=== PATIENT | male | born 1980 | race Caucasian/White ===

== ENCOUNTER 2018-09-24 16:55 | Inpatient (IN) | payer BC ==
[~2018-09-24] VITALS: Ht 172.7 cm; Wt 97.5 kg
[2018-09-24] VITALS (7 sets, daily range): BP systolic 101–113; BP diastolic 66–76
[~2018-09-24 16:55] MED LIST changes: -DOCU-202 PO; -LOR5/325 PO
--- NOTE | 2018-09-24 17:18 | ER Report ---
History and Physical Time Seen By MD: 17:17 Hx. of Stated Complaint: right sided abd pain HPI/ROS rlq pain and nausea for 24 hours. Went to urgent care and sent to ED with CT sca n positive for ruptured appy. Febrile. RLQ TTP. Remainder of the 14 system rev: Yes Allergies: Coded Allergies: No Known Drug Allergies (Unverified , 09/24/18) Home Meds Discontinued Reported Medications Oxycodone Hcl/Acetaminophen (PERCOCET 5-325 MG TABLET) 1 Each Tablet, 1 EACH PO Q6H 09/11/13 Naproxen (NAPROSYN) 500 Mg Tablet, 500 MG PO Q12H, TAB TAKE 1 TABLET EVERY 12 HOURS. 09/11/13 Tramadol Hcl (ULTRAM) 50 Mg Tablet, 50 MG PO Q4-6H 09/11/13 Discontinued Scripts Tramadol Hcl (ULTRAM) 50 Mg Tablet, 50 MG PO Q4-6H, #20 TAB Prov:ERICK HARRIS MD 09/11/13 Oxycodone Hcl/Acetaminophen (PERCOCET 5-325 MG TABLET) 1 Each Tablet, 1 EACH PO Q6H, #20 TAB Prov:ERICK HARRIS MD 09/11/13 Naproxen (NAPROSYN) 500 Mg Tablet, 500 MG PO Q12H, #30 TAB TAKE 1 TABLET EVERY 12 HOURS. Prov:ERICK HARRIS MD 09/11/13 Reviewed Nurses Notes: Yes Old Medical Records Reviewed: Yes Hx Smoking: Yes Hx Substance Use Disorder: No Hx Alcohol Use: No Constitutional Vital Sign - Last 24 Hours 09/24/18 09/24/18 09/24/18 09/24/18 17:06 17:15 17:25 17:30 Temp 102.0 Pulse 105 101 Resp 18 B/P (MAP) 109/78 (88) 109/78 123/78 (93) Pulse Ox 89 88 O2 Delivery Room Air Room Air 09/24/18 17:50 Pulse 102 Pulse Ox 89 O2 Delivery Room Air Physical Exam General Appearance: The patient is alert, has no immediate need for airway protection and no current signs of toxicity. Respiratory: Chest is non tender, lungs are clear to auscultation. Cardiac: regular rate and rhythm Gastrointestinal: Abdomen is soft with TTP at the RLQ and guarding Skin: No rashes or lesions. DIFFERENTIAL DIAGNOSIS: After history and physical exam differential diagnosis w as considered for abdominal pain including but not limited to appendicitis, cholecystitis, gastritis and urinary tract infection. Medical Decision Making Data Points Laboratory Hematology Test 09/24/18 17:33 Chemistry Test 09/24/18 17:33 Coagulation Test 09/24/18 17:33 ED Course/Re-evaluation ED Course sent to the ED from urgent care with known perforated appendicitis both clinically and on CT scan. Fever, nausea, abdominal pain for 24 hours. Given abx and pain meds. will go to the OR. Decision to Disposition Date: Sep 24, 2018 Decision to Disposition Time: 17:55 Depart Departure Latest Vital Signs Vital Signs Date Time Temp Pulse Resp B/P (MAP) Pulse Ox O2 Delivery O2 Flow Rate FiO2 09/24/18 17:50 102 89 Room Air 09/24/18 17:30 123/78 (93) 09/24/18 17:15 102.0 18 Impression: Primary Impression: Acute appendicitis with appendiceal abscess Condition: Improved Disposition: ADMIT FROM ER TO OR BRIJESH CUNNINGHAM MD Sep 24, 2018 17:17
[2018-09-24] MEDS ORDERED: NS(*) 0.9% 1000 ML BAG 1,000 ML IV ONE (17:25)
[2018-09-24] MEDS ORDERED: ONDANSETRON 4 MG/2 ML VIAL IVP ONE (17:30)
[2018-09-24] MEDS ORDERED: fentaNYL CITR 100 MCG/2 ML AMP IVP ONE (17:30)
[2018-09-24] MEDS ORDERED: AMPICILLIN/SULBACT (*) 3 GM VL 3 GM in NS(*) 0.9% 100 ML BAG 100 ML IVPB ONE (17:35)
[2018-09-24] MEDS ORDERED: BUPIV/EPI 0.25% 1:200,000 50ML INFIL ONE (17:43)
[2018-09-24 17:55] LABS: PLATELET COUNT, AUTOMATED 197 K/uL (150-450)
--- NOTE | 2018-09-24 17:58 | Gen Surgery History & Physical ---
History of Present Illness Chief Complaint RLQ pain History of Present Illness This 37 year old male was in his usual state of [facility] until three days ago when he developed periumbilical pain. This has increased in severity and moved to the RLQ. Associated with nausea and anorexia. Was seen at urgent care and had a CT scan that shows perforated appendicitis. Now being admitted for appendectomy. History Home Meds Discontinued Reported Medications Oxycodone Hcl/Acetaminophen (PERCOCET 5-325 MG TABLET) 1 Each Tablet, 1 EACH PO Q6H 09/11/13 Naproxen (NAPROSYN) 500 Mg Tablet, 500 MG PO Q12H, TAB TAKE 1 TABLET EVERY 12 HOURS. 09/11/13 Tramadol Hcl (ULTRAM) 50 Mg Tablet, 50 MG PO Q4-6H 09/11/13 Discontinued Scripts Tramadol Hcl (ULTRAM) 50 Mg Tablet, 50 MG PO Q4-6H, #20 TAB Prov:ERICK HARRIS MD 09/11/13 Oxycodone Hcl/Acetaminophen (PERCOCET 5-325 MG TABLET) 1 Each Tablet, 1 EACH PO Q6H, #20 TAB Prov:ERICK HARRIS MD 09/11/13 Naproxen (NAPROSYN) 500 Mg Tablet, 500 MG PO Q12H, #30 TAB TAKE 1 TABLET EVERY 12 HOURS. Prov:ERICK HARRIS MD 09/11/13 Allergies: Coded Allergies: No Known Drug Allergies (Unverified , 09/24/18) Review of Systems All Systems Reviewed/Normal: Yes, Except as Noted Gastrointestinal: Nausea, Abdominal Pain, Other (Anorexia) Exam General Appearance: Alert, Awake, No Acute Distress ENT: Moist Mucous Membranes Cardiovascular: Regular Rate and Rhythm Respiratory: No Respiratory Distress, Clear to Auscultation GI: Other (Abdomen is distended, markedly tender in RLQ, postive rebound and Rovsings sign. ) Extremities: Soft and Non Tender Integumentary: Skin Intact without Lesion / Mass Psych: Alert & Oriented X3, Appropriate Mood & Affect Assessment and Plan Problems: (1) Acute appendicitis with appendiceal abscess Status: Acute Assessment & Plan: I discussed in detail the diagnosis and treatment options. I reviewed the procedure of laparoscopic appendectomy and possible need for open operation. Risks and possible complications were reviewed. Informed consent obtained. IV Unasyn ordered by ED MD. To OR TON. Venous Thromboembolism VTE Risk Physician Assess for VTE Risk: Yes Patient's VTE Risk: Low VTE Diagnostic Test 2 Days Prior to Admit: No Antithrombotics Is Pt On Any Antithrombotics?: No Prophylaxis Tx Contraindicated Pharmacological Contraindicati: Pt at Low Risk for VTE Mechanical Contraindications: Pt at Low Risk for VTE SABINE HERNANDEZ MD Sep 24, 2018 17:58
[2018-09-24 18:06] LABS: INR 1.16
[2018-09-24] MEDS ORDERED: NS 0.9% IRRIGATION 1000ML PLCT IR ONE (18:43)
[2018-09-24] MEDS ORDERED: KCL/D1/2NS 20 MEQ 1000 ML 1,000 ML IV PRN (19:43)
--- NOTE | 2018-09-24 19:43 | Post Operative Progress Note ---
Post Operative Progress Note Date: Sep 24, 2018 Time: 19:35 Surgeon: [employer] Technologist: ZACK Anesthesia: General ET Pre-Op Diagnosis: Perforated appendicitis Post-Op Diagnosis: same with periappendiceal abscess Findings: as above Procedure(s): Laparoscopic appendectomy and drainage of periappendiceal abscess Specimen Removed:(May be N/A): Appendix Complications: none Estimated Blood Loss: < 10 ml Date OP Note Dictated: Sep 24, 2018 Time OP Note Dictated: 19:36 SABINE HERNANDEZ MD Sep 24, 2018 19:43
[2018-09-24] MEDS ORDERED: ONDANSETRON 4 MG/2 ML VIAL IVP PRN (19:45)
[2018-09-24] MEDS ORDERED: KETOROLAC 30 MG/ML VIAL ONE (19:53)
[2018-09-24] MEDS ORDERED: LIDOCAINE/SOD BICARB 8.4% SYR ONE (19:59)
[2018-09-24] MEDS ORDERED: PIPERACILLIN/TAZO*3.375GM VIAL 3.375 GM in NS(*) 0.9% 100 ML ADDVANT BAG 100 ML IVPB SCH (20:00)
[2018-09-24] MEDS ORDERED: NORMOSOL R SOLN(*) 1000 ML BAG 1,000 ML IV ONE (20:10)
[2018-09-24] MEDS ORDERED: ACETAMINOPHEN(*)1000 MG/100 ML 100 ML IVPB ONE (20:14)
--- NOTE | 2018-09-24 20:37 | OPERATIVE REPORT 1 ---
EVENT DATE: September 24, 2018 SURGEON: Aydin Hoyos MD ANESTHESIOLOGIST: Parish Reynoso MD ANESTHESIA: General endotracheal anesthesia. 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 Incarcerated umbilical hernia PROCEDURE PERFORMED Laparoscopic appendectomy with drainage of periappendiceal abscess. Umbilical hernia repair PROCEDURE IN DETAIL Patient was taken to the operating room and placed in supine position. After induction of adequate general endotracheal anesthesia, timeout was taken. Patient had received Unasyn preoperatively. SCDs were in place. Abdomen was preped and draped in usual sterile fashion. Attention was then turned to the umbilicus. The patient as noted to have an umbilical hernia. Therefore, an incision was made at the superior aspect of the umbilicus overlying the hernia. This was carried through the skin and subcutaneous tissue. The hernia sac contained preperitoneal fat, the hernia sac was dissected free from its surrounding tissues. The hernia sac was then excised. The preperitoneal fat was reduced. A pursestring 0 Vicryl suture was placed in the fascia. A 10/12 trocar was then introduced under direct visualization. Pneumoperitoneum was created. The laparoscope was then introduced. Two 5 mm ports were then placed under direct visualization, one in the right upper quadrant and one in the left lower quadrant. The patient was then placed in the head-down position and turned towards the left. The small bowel was adherent to an inflammatory mass in the right lower quadrant. Using careful blunt dissection, the small bowel was from this phlegmon. Attention was turned to the lateral pericolic gutter where dissection was continued freeing the appendix. A periappendiceal abscess was then entered. This was evacuated with suction irrigation. Further dissection was continued mobilizing the mesoappendix. The mesoappendix was then divided with the Harmonic scalpel. Dissection was continued up to the base of the appendix. The appendiceal base appeared to be uninvolved. A 5 mm scope attached in through the right upper quadrant 5 mm port. Using this ROMULO stapling device through the 12 mm port, the appendiceal base was then stapled and divided at the cecum. The appendix was then placed in an Endo Pouch and brought through the umbilicus. The right lower quadrant was irrigated with copious amounts of saline. Adequate hemostasis confirmed. A 19-Romansh round, fully fluted drain was then brought in through a separate stab wound incision in the right lower quadrant and positioned in this abscess cavity. It was sutured to the skin with an 0 silk suture. Adequate hemostasis was again confirmed. The two 5 mm ports were removed under direct visualization. Hemostasis noted. The pneumoperitoneum was then evacuated. The fascial defect at the umbilical hernia site was then closed with interrupted 2-0 PDS sutures. The umbilicus was tacked to this repair with interrupted 2-0 PDS suture. All wounds were infiltrated with 0.25% Marcaine with epinephrine for postop pain control. All wounds were irrigated with copious amounts of saline. The skin was then closed with simple running 4-0 Monocryl subcuticular sutures. Dermabond was applied to all wounds. The patient tolerated this well and was taken to the PACU in stable condition. He will be admitted to the surgical floor for continued postoperative care and intravenous antibiotics. ZACK
[2018-09-24] MEDS: DOCUSATE SODIUM 100 MG CAP PO SCH (21:58)
[2018-09-25] VITALS (11 sets, daily range): BP systolic 94–109; BP diastolic 56–74; Ht 172.7 cm; Wt 97.5 kg
[2018-09-25] MEDS: KETOROLAC 30 MG/ML VIAL IVP SCH ×4 (02:35→20:24)
[2018-09-25] MEDS: PIPERACILLIN/TAZO*3.375GM VIAL 3.375 GM in NS(*) 0.9% 100 ML ADDVANT BAG 100 ML IVPB SCH ×4 (02:37→20:24)
[2018-09-25 05:56] LABS: PLATELET COUNT, AUTOMATED 168 K/uL (150-450)
[2018-09-25] MEDS ORDERED: KCL/D1/2NS 20 MEQ 1000 ML 1,000 ML IV PRN (06:40)
--- NOTE | 2018-09-25 06:40 | General Surgery Progress Note ---
Subjective Progress Notes Subjective Feeling better Physical Exam Vital Signs Date Time Temp Pulse Resp B/P (MAP) Pulse Ox O2 Delivery O2 Flow Rate FiO2 09/25/18 05:43 97.8 09/25/18 05:02 101/68 (79) 09/25/18 05:00 66 96 Nasal Cannula 3.0 09/24/18 21:27 16 Intake and Output 09/25/18 07:00 Intake Total 3050 ml Output Total 1060 ml Balance 1990 ml Intake Oral 200 ml IV Total 2850 ml Output Urine Total 1025 ml Drainage Total 35 ml General Appearance: Alert, Awake, No Acute Distress, Afebrile Neuro: No Gross deficits ENT: Moist Mucous Membranes Cardiovascular: Regular Rate and Rhythm Respiratory: No Respiratory Distress, Clear to Auscultation GI: Other (soft, expected tenderness, BS present) Extremities: Soft and Non Tender Psych: Alert & Oriented X3 Result Diagram: 09/25/1854109/25/18541 Assessment and Plan Problems: (1) Acute appendicitis with appendiceal abscess Status: Acute Assessment & Plan: I discussed in detail the diagnosis and treatment options. I reviewed the procedure of laparoscopic appendectomy and possible need for open operation. Risks and possible complications were reviewed. Informed consent obtained. IV Unasyn ordered by ED MD. To OR TON. 09/25/18: POD #1 Afebrile now, WBC 13.7K, Lytes and Cr okay. Continue Zosyn. Leave drain. Continue full liquids for now. Decrease IVF, Vigorous pulmonary toilet. Ambulate. Recheck CBC in am. Time Spent: < 30 min Exam Sepsis Risk: No Definite Risk SABINE HERNANDEZ MD Sep 25, 2018 06:40
[2018-09-25] MEDS ORDERED: ENOXAPARIN 40 MG/0.4ML SYR SC SCH (09:00)
[2018-09-25] MEDS: ENOXAPARIN 40 MG/0.4ML SYR SC SCH (09:33)
[2018-09-25] MEDS: DOCUSATE SODIUM 100 MG CAP PO SCH ×2 (09:33→20:24)
[2018-09-25] MEDS: APAP/HYDROCODONE 325/5 TAB PO PRN ×3 (13:03→21:42)
[2018-09-26] MEDS: KETOROLAC 30 MG/ML VIAL IVP SCH ×2 (02:37→08:18)
[2018-09-26] MEDS: PIPERACILLIN/TAZO*3.375GM VIAL 3.375 GM in NS(*) 0.9% 100 ML ADDVANT BAG 100 ML IVPB SCH ×3 (02:37→14:24)
[2018-09-26 03:24] VITALS: BP 99/52
[2018-09-26 05:56] LABS: PLATELET COUNT, AUTOMATED 165 K/uL (150-450)
[2018-09-26 07:58] VITALS: BP 104/60
[2018-09-26] MEDS: DOCUSATE SODIUM 100 MG CAP PO SCH (08:19)
[2018-09-26] MEDS: ENOXAPARIN 40 MG/0.4ML SYR SC SCH (08:19)
--- NOTE | 2018-09-26 10:39 | General Surgery Progress Note ---
Subjective Progress Notes Subjective Feeling much better, tolerating PO, had BM's. Physical Exam Vital Signs Date Time Temp Pulse Resp B/P (MAP) Pulse Ox O2 Delivery O2 Flow Rate FiO2 09/26/18 09:49 92 09/26/18 08:28 Nasal Cannula 2.0 09/26/18 07:58 98.6 68 17 104/60 (75) Intake and Output 09/26/18 07:00 Intake Total 841 ml Output Total 20 ml Balance 821 ml Intake Oral 520 ml IV Total 321 ml Drainage Total 20 ml # Voids 6 # Bowel Movements 3 General Appearance: Alert, Awake, No Acute Distress, Afebrile Cardiovascular: Regular Rate and Rhythm Respiratory: No Respiratory Distress, Clear to Auscultation GI: Soft and Non-Tender (Incisions all healing without infection. Dermabond intact) Extremities: Soft and Non Tender Psych: Alert & Oriented X3, Appropriate Mood & Affect Result Diagram: 09/26/18 0542 09/25/18 0542 Assessment and Plan Problems: (1) Acute appendicitis with appendiceal abscess Status: Acute Assessment & Plan: I discussed in detail the diagnosis and treatment options. I reviewed the procedure of laparoscopic appendectomy and possible need for open operation. Risks and possible complications were reviewed. Informed consent obtained. IV Unasyn ordered by ED MD. To OR TON. 09/25/18: POD #1 Afebrile now, WBC 13.7K, Lytes and Cr okay. Continue Zosyn. Leave drain. Continue full liquids for now. Decrease IVF, Vigorous pulmonary toilet. Ambulate. Recheck CBC in am. 09/26/18: POD #2 Continues to improve, WBC back to WNL, Tolerating PO and having BM's. Will DC drain and discharge to home this pm. Wound care and aftercare instructions given. F/U with Dr. Tsang in one week. Condition good Time Spent: < 30 min Exam Sepsis Risk: No Definite Risk SABINE HERNANDEZ MD Sep 26, 2018 10:39
[2018-09-26 10:46] VITALS: BP 107/70
[2018-09-26] MEDS ORDERED: DOCU-202 PO (11:06)
[2018-09-26] MEDS ORDERED: LOR5/325 PO (11:06)
--- NOTE | 2018-09-26 11:08 | Hospitalist Depart ---
Discharge Summary Reason for Hosp/Final Diag: (1) Acute appendicitis with appendiceal abscess Status: Acute Hospital Course & Plan: I discussed in detail the diagnosis and treatment options. I reviewed the procedure of laparoscopic appendectomy and possible need for open operation. Risks and possible complications were reviewed. Informed consent obtained. IV Unasyn ordered by ED MD. To OR TON. 09/25/18: POD #1 Afebrile now, WBC 13.7K, Lytes and Cr okay. Continue Zosyn. Leave drain. Continue full liquids for now. Decrease IVF, Vigorous pulmonary toilet. Ambulate. Recheck CBC in am. 09/26/18: POD #2 Continues to improve, WBC back to WNL, Tolerating PO and having BM's. Will DC drain and discharge to home this pm. Wound care and aftercare instructions given. F/U with Dr. Tsang in one week. Departure Weight (Pounds): 215 Result Diagram: 09/26/18 0542 09/25/18 0542 Condition: Improved Discharge: Home Discharge Code Status: Full Code Time Spent: < 30 min Discharge Instructions Home Meds Active Scripts Hydrocodone Bit/Acetaminophen (HYDROCODON-ACETAMINOPHEN 5-325) 1 Each Tablet, 1- 2 EACH PO Q4H PRN for MODERATE PAIN for 3 Days, #16 TAB 0 Refills Take 1 to 2 tabs every 4 to 6 hours as needed for pain. Transition to Advil for pain in next 24-48 hours. Prov:SABINE HERNANDEZ MD 09/26/18 Docusate Sodium (DOCUSATE SODIUM) 100 Mg Capsule, 100 MG PO BID, #20 CAPSULE Prov:SABINE HERNANDEZ MD 09/26/18 Discontinued Reported Medications Oxycodone Hcl/Acetaminophen (PERCOCET 5-325 MG TABLET) 1 Each Tablet, 1 EACH PO Q6H 09/11/13 Naproxen (NAPROSYN) 500 Mg Tablet, 500 MG PO Q12H, TAB TAKE 1 TABLET EVERY 12 HOURS. 09/11/13 Tramadol Hcl (ULTRAM) 50 Mg Tablet, 50 MG PO Q4-6H 09/11/13 Discontinued Scripts Tramadol Hcl (ULTRAM) 50 Mg Tablet, 50 MG PO Q4-6H, #20 TAB Prov:ERICK HARRIS MD 09/11/13 Oxycodone Hcl/Acetaminophen (PERCOCET 5-325 MG TABLET) 1 Each Tablet, 1 EACH PO Q6H, #20 TAB Prov:ERICK HARRIS MD 09/11/13 Naproxen (NAPROSYN) 500 Mg Tablet, 500 MG PO Q12H, #30 TAB TAKE 1 TABLET EVERY 12 HOURS. Prov:ERICK HARRIS MD 09/11/13 Diet: Regular Activity: No Heavy Lifting Venous Thromboembolism Antithrombotics Is Pt On Any Antithrombotics?: No SABINE HERNANDEZ MD Sep 26, 2018 11:08
== END 2018-09-26 15:30 | disposition home or self-care (01) | DRG 340 ==
LOC: ER 17:39 → OR 17:50 → MED 21:20
PROVIDERS: ADMIT Surgery; ATTEND Surgery
PROC: 0WQF0ZZ Repair Abdominal Wall, Open Approach (ICD-10-PCS; 2018-09-24)
PROC: 0DTJ4ZZ Resection of Appendix, Percutaneous Endoscopic Approach (ICD-10-PCS; principal; 2018-09-24 18:08)
DX: K35.33 Acute appendicitis with perforation, localized peritonitis, and gangrene, with abscess (principal); K42.9 Umbilical hernia without obstruction or gangrene
CPT/HCPCS: 36415; 82040; 82247; 82310; 82374; 82435; 82565; 82947; 84075; 84132; 84155; 84295; 84450; 84460; 84520; 85025; 85610; 85730; 88304; 96361; 96374; 96375; 99285; J0131; J0295; J1650; J1885; J2405; J2543; J3010; J3480; J7030; J7050

== ENCOUNTER → 2018-09-24 | Outpatient (CLI) | payer BC ==
[~2018-09-24] MED LIST: DEXAMETHASONE SOD 4 MG/ML VIAL ONE; DOCU-202 PO; IOPAMIDOL 76% 100 ML INFUS BTL 100 ML ONE; LIDOCAINE MPF 1% 5 ML VIAL ONE; LOR5/325 PO; NAPR500T75 PO; ONDANSETRON 4 MG/2 ML VIAL ONE; OXYC-865 PO; PROPOFOL EMUL(*) 10MG/ML 20 ML 20 ML ONE; ROCURONIUM BROM 10 MG/ML 10 ML ONE; SUGAMMADEX SOD 200 MG/2 ML SDV ONE; TRAM-627 PO; fentaNYL CITR 100 MCG/2 ML AMP ONE
--- NOTE | 2018-09-24 16:55 | RADIOLOGY IMAGING REPORT ---
FACILITY: [facility] PATIENT NAME: Dev Vega : 1980 MR: [id number] V: [id number] EXAM DATE: ORDERING PHYSICIAN: ERICK SUAZO TECHNOLOGIST: Location: [facility] Patient: Dev Vega : 1980 Visit/Account:[id number] Date of Sevice: 09/24/2018 EXAMINATION: CT abdomen and pelvis with IV contrast HISTORY: Right lower quadrant pain. TECHNIQUE: Axial CT images of the abdomen and pelvis were obtained with IV contrast, with coronal a nd sagittal 2D reconstructed images. One of the following dose optimization techniques was utilized in the performance of this exam: Autom ated exposure control; adjustment of the mA and/or kV according to the patient's size; or use of an i terative reconstruction technique. Specific details can be referenced in the facility's radiology C T exam operational policy. Contrast: 85 mL of IV Isovue-370. COMPARISON: None. FINDINGS: Liver: Negative. Gallbladder and bile ducts: Negative. Spleen: Negative. Pancreas: Negative. Adrenal glands: Negative. Kidneys: Negative. No hydronephrosis or urinary calculi. Bowel and peritoneum: Exam is positive for perforated appendicitis. The appendix is retrocecal in po sition and is dilated up to 1.2 cm with wall thickening and enhancement and moderate periappendiceal soft tissue stranding and edema. Along the mid appendix there is a localized segment of nonenhancemen t and indistinctness of the appendiceal wall compatible with perforation. There is adjacent nonlocula allegra fluid tracking along the mesentery, without any organized fluid collection or drainable abscess a t this time. Remainder of the small bowel and colon are normal in caliber and unremarkable by CT. Small amount of free fluid in the right lower abdomen. No free intraperitoneal air. Pelvic structures: Negative. Lymph node assessment: Negative. Vessels: Negative. Musculoskeletal: Negative. Body wall: Small fat-containing umbilical hernia. Lung bases: Negative. IMPRESSION: 1. Positive exam for perforated appendicitis. The inflamed appendix is retrocecal in position. There is some nonloculated fluid adjacent to the inflamed appendix, without any organized fluid collection or drainable abscess at this time. 2. No other acute intra-abdominal findings. 3. Small fat-containing umbilical hernia. Findings were discussed with ERICK SUAZO at 09/24/2018 4:49 PM. Report Dictated By: Milton Hua MD at 09/24/2018 4:43 PM Report E-Signed By: Milton Hua MD at 09/24/2018 4:52 PM WSN:[id number]
== END ==
LOC: RAD 15:06
PROVIDERS: ATTEND Nurse Practitioner Family
DX: K35.32 Acute appendicitis with perforation, localized peritonitis, and gangrene, without abscess (principal); K42.9 Umbilical hernia without obstruction or gangrene
CPT/HCPCS: 74177; J1100; J2001; J2405; J2704; J3010; Q9967

== ENCOUNTER → 2018-09-24 | Outpatient (REF) | payer BC ==
[~2018-09-24] MED LIST changes: -DEXAMETHASONE SOD 4 MG/ML VIAL ONE; -IOPAMIDOL 76% 100 ML INFUS BTL 100 ML ONE; -LIDOCAINE MPF 1% 5 ML VIAL ONE; -ONDANSETRON 4 MG/2 ML VIAL ONE; -PROPOFOL EMUL(*) 10MG/ML 20 ML 20 ML ONE; -ROCURONIUM BROM 10 MG/ML 10 ML ONE; -SUGAMMADEX SOD 200 MG/2 ML SDV ONE; -fentaNYL CITR 100 MCG/2 ML AMP ONE
[2018-09-24 14:40] LABS: PLATELET COUNT, AUTOMATED 209 K/uL (150-450)
== END ==
PROVIDERS: ATTEND Nurse Practitioner Family
DX: R10.9 Unspecified abdominal pain (principal)
CPT/HCPCS: 82040; 82150; 82247; 82310; 82374; 82435; 82565; 82947; 83690; 84075; 84132; 84155; 84295; 84450; 84460; 84520; 85025

== ENCOUNTER → 2018-12-07 | Outpatient (REF) | payer BC ==
[2018-09-25 12:22] VITALS: BMI 32.7
[~2018-12-07] MED LIST changes: +DOCU-202 PO; +LOR5/325 PO
[2018-12-07 12:02] LABS: PLATELET COUNT, AUTOMATED 220 K/uL (150-450)
== END ==
PROVIDERS: ATTEND Nurse Practitioner Family
DX: R05 Cough (principal)
CPT/HCPCS: 82040; 82247; 82310; 82374; 82435; 82565; 82947; 84075; 84132; 84155; 84295; 84450; 84460; 84484; 84520; 85025; 85379